=== PATIENT | female | born 1940 | race Caucasian/White ===

== ENCOUNTER → 2025-02-13 23:10 | Emergency (ER) | payer MEDICARE, SELFPAY ==
[2025-02-13 23:11] VITALS: BP 158/75; BMI 28.9
[2025-02-13 23:12] VITALS: BP 158/75
[2025-02-14] VITALS (12 sets, daily range): BP systolic 107–167; BP diastolic 59–96; PULSE 71–73; O2SAT 96
--- NOTE | 2025-02-14 03:25 | ED.GENMED ---
History of Present Illness
<Juan Dennis Jr., PA-C - Last Filed: 02/14/25 23:10>
General
Chief Complaint: Musculo-Skeletal Complaint
Source: patient, ambulance crew and custodial
Exam Limitations: none
Time Seen by Provider: 02/14/25 01:50
Nursing documentation reviewed up to this point in time: agreed with
History of Present Illness
History of Present Illness:
84-year-old female presenting from [facility] with concerns of right leg pain worsening over the past few weeks. Difficulty ambulating tonight. Denies any chest pain shortness of breath numbness weakness changes in overlying
skin or swelling.
Review of Systems
<MARCO Pfeiffer Jr. Last Filed: 02/14/25 23:10>
Review of Systems
Allergies reviewed?: Yes
All Other Systems: ROS reviewed and negative except as documented in HPI and ROS
Phy Exam
<Juan Dennis Jr., PA-C - Last Filed: 02/14/25 23:10>
Physical Exam
Physical Exam:
GENERAL: Alert , in no apparent distress
EYE: pupils equal and reactive
NECK: Supple, no significant adenopathy.
ENT: o/p clr, mmm.
CARDIAC: Regular rate and rhythm .
LUNGS: Clear breath sounds bilaterally, no acute respiratory distress, no wheezes/rales/rhonchi
ABDOMEN: Soft, without focal tenderness, no r/g, no cvat
NEUROLOGICAL: Alert and oriented, no focal neuro deficits
SKIN: Warm and dry, skin intact.
MUSCULOSKELETAL: Trace pitting edema to the right lower extremity distal to the knee no redness or warmth does have some discomfort with movement at the knee however does have general range of motion, well perfused.
PSYCH: Normal and appropriate interaction.
Course
<Juan Dennsi Jr., PA-C - Last Filed: 02/14/25 23:10>
Orders/Labs/Results
Orders:
Orders
02/14/25 02:19
CR Knee- Right 4 Or More View* Urgent
Comment:
Reason For Exam: kne epain
Hip, Right 2-3 Views [CR Hip - RT w/wo Pel 2-3 Vw*] Urgent
Comment:
Reason For Exam: hip pain
Include a pelvis x-ray?: Yes
Venous Doppler Lwr Ext Rt [ Perip Venous LOWER Ext RT] Urgent
Comment:
Reason For Exam: leg pain, bed bound
02/14/25 03:47
Acetaminophen [Tylenol] 1,000 mg PO NOW STA
02/14/25 05:25
CBC/With Diff [Complete Blood Count/With Diff] Urgent
CMP [Comprehensive Metabolic Panel] Urgent
02/14/25 05:37
Pt Eval And Treat Urgent
Activity Level: Ambulate
02/14/25 05:43
Ketorolac [Toradol] 7.5 mg IV NOW STA
02/14/25 05:49
Case Management Consult ONCE
Case Management Consult: Discharge Planning
02/14/25 08:28
Occupational Therapy Consult [Ot Eval And Treat] Urgent
02/14/25 12:09
Walker [Treatment- Walker] ONCE
Abnormal Lab Results
02/14/25
05:25
RBC 4.13 L 10^6/uL
(4.20-5.40)
Hct 36.1 L %
(37.0-47.0)
Lymphocytes % 18.9 L %
(20.5-51.1)
Glucose 201 H mg/dl
(70-99)
02/14/25 05:25
02/14/25 05:25
Vital Signs
Initial and Last Documented VS:
Initial Vital Signs
Temp Pulse Resp BP Pulse Ox
97.9 F 93 18 158/75 94
02/13/25 23:11 02/13/25 23:11 02/13/25 23:11 02/13/25 23:11 02/13/25 23:11
Last Documented Vital Signs
Temp Pulse Resp BP Pulse Ox
97.9 F 79 16 151/81 97
02/13/25 23:11 02/14/25 12:10 02/14/25 12:10 02/14/25 12:10 02/14/25 12:10
<Deb De Souza PA-C - Last Filed: 02/14/25 16:20>
Orders/Labs/Results
Orders:
Orders
02/14/25 02:19
CR Knee- Right 4 Or More View* Urgent
Comment:
Reason For Exam: kne epain
Hip, Right 2-3 Views [CR Hip - RT w/wo Pel 2-3 Vw*] Urgent
Comment:
Reason For Exam: hip pain
Include a pelvis x-ray?: Yes
Venous Doppler Lwr Ext Rt [US Periph Venous LOWER Ext RT] Urgent
Comment:
Reason For Exam: leg pain, bed bound
02/14/25 03:47
Acetaminophen [Tylenol] 1,000 mg PO NOW STA
02/14/25 05:25
CBC/With Diff [Complete Blood Count/With Diff] Urgent
CMP [Comprehensive Metabolic Panel] Urgent
02/14/25 05:37
Pt Eval And Treat Urgent
Activity Level: Ambulate
02/14/25 05:43
Ketorolac [Toradol] 7.5 mg IV NOW STA
02/14/25 05:49
Case Management Consult ONCE
Case Management Consult: Discharge Planning
02/14/25 08:28
Occupational Therapy Consult [Ot Eval And Treat] Urgent
02/14/25 12:09
Walker [Treatment- Walker] ONCE
Abnormal Lab Results
02/14/25
05:25
RBC 4.13 L 10^6/uL
(4.20-5.40)
Hct 36.1 L %
(37.0-47.0)
Lymphocytes % 18.9 L %
(20.5-51.1)
Glucose 201 H mg/dl
(70-99)
02/14/25 05:25
02/14/25 05:25
Vital Signs
Initial and Last Documented VS:
Initial Vital Signs
Temp Pulse Resp BP Pulse Ox
97.9 F 93 18 158/75 94
02/13/25 23:11 02/13/25 23:11 02/13/25 23:11 02/13/25 23:11 02/13/25 23:11
Last Documented Vital Signs
Temp Pulse Resp BP Pulse Ox
97.9 F 79 16 151/81 97
02/13/25 23:11 02/14/25 12:10 02/14/25 12:10 02/14/25 12:10 02/14/25 12:10
<Juan Dennis Jr., MARCO - Last Filed: 02/14/25 23:10>
MDM/Problems Addressed
MDM/Problems Addressed:
84-year-old female presenting to the emergency department today with concerns of right leg pain over the past few weeks slightly worsened tonight difficulty ambulating. Vital signs normal on arrival afebrile no overlying skin pain made worse with
some movements of the right lower extremity. Denies any back pain. Neuro vascularly intact. Ultrasound without acute abnormalities. X-ray without acute abnormalities as well. No redness or warmth. Seems to describe symptoms mainly to the back
of her leg. Try to have her stand up and walk she claims that symptoms were significantly severe into her leg and she was not able to walk. She feels unsafe going home secondary to her ambulatory dysfunction. Concerning this plan to admit. No
evidence of infectious process or emergent bony injury. Labs unremarkable.
<Juan Dennis Jr., PA-C - Last Filed: 02/14/25 23:10>
*Pulse Oximetry
SaO2: 96
Oxygen Mode of Delivery: Room air
<Deb De Souza PA-C - Last Filed: 02/14/25 16:20>
*Pulse Oximetry
Patient hypoxic: no
*Critical Care Note
Total Time (30-74mins, 75-104mins- exclusive of procedures): Not Applicable
<Deb De Souza PA-C - Last Filed: 02/14/25 16:20>
Update Note
Update Note:
Update 12 PM: Received patient in signout pending physical therapy and case management consult. After physical therapy evaluation�recommendation was for at home health. On reassessment�patient states her symptoms seem significantly improved since
arrival to the emergency department. She was able to ambulate with the help of a walker during physical therapy evaluation. Offered admission for ambulatory dysfunction versus discharge home with walker. Patient prefers to go home with walker as
her symptoms have improved. Strict return precautions discussed. Home health was set up with case management. Patient ambulating out of emergency department with walker.
ED Attending Note
<Juan Dennis Jr., PA-C - Last Filed: 02/14/25 23:10>
-
Portions of this chart may have been created with voice recognition software.� Occasional wrong word or��sound alike� substitutions may have occurred due to the inherent limitations of voice recognition software.
Discharge Plan
Departure
Patient Disposition: Home (Routine Discharge)
Date of Disposition: 02/14/25
Time of Disposition: 12:08
Patient with high blood pressure during this ER visit?: Yes
Condition: Good
Covid-19: Not Applicable
Discharge Problem:
Leg pain, right, Ambulatory dysfunction
Prescriptions:
No Action
carvedilol 25 mg Tablet
25 mg PO BID
valsartan 80 mg Tablet
80 mg PO DAILY
spironolactone 25 mg Tablet
25 mg PO DAILY
simvastatin 40 mg Tablet
40 mg PO DAILY
glimepiride 2 mg Tablet
2 mg PO BID
pantoprazole 40 mg Tablet,Delayed Release (Dr/Ec)
40 mg PO DAILY
metformin 500 mg Tablet Extended Release 24 Hr
500 mg PO BID
melatonin 3 mg Tablet
3 mg PO HSPRN PRN (Reason: sleep)
aspirin 81 mg Tablet,Delayed Release (Dr/Ec)
81 mg PO DAILY
cinnamon bark [Cinnamon] 500 mg Capsule
1,000 mg PO DAILY
calcium carbonate-vitamin D3 [Calcium 600 + D(3)] 600 mg-10 mcg (400 unit) Tablet
2 tab PO DAILY
omega 4-ajd-wtf-fish oil [Fish Oil] 1,200 (144-216) mg Capsule
1 cap PO DAILY
multivit with min-folic acid [Diabetic Multivitamin] 120 mcg Tablet,Chewable
1 tab PO DAILY
amoxicillin-pot clavulanate 875-125 mg Tablet
1 tab PO Q12 8 Days Qty: 16 0RF
Referrals:
Michela Hall MD [Family Provider, Internal Medicine] - Follow up in 5-7 days
Activity Restrictions/Additional Instructions:
RETURN TO THE EMERGENCY DEPARTMENT WITH ANY INTRACTABLE PAIN, DIFFICULTY AMBULATING NUMBNESS/TINGLING IN EXTREMITIES, FALLS, WORSENING IN CURRENT SYMPTOMS, OR ANY OTHER CONCERNS
- Home health care was set up today as recommended by PT.
- Please use walker to assist with ambulation. You can take Tylenol as needed for pain.
- Follow-up with primary care for further evaluation/management to ensure that symptoms are not
Monitor your symptoms closely and return to the emergency department with any acute worsening/new symptoms or any other concerns
Interventions
Interventions:
*Risk Screen - Suicide Last Done: 02/13/25 23:15
*General Assessment Last Done: 02/13/25 23:15
*Neglect/Abuse Screening Last Done: 02/13/25 23:15
*ED- Fall Risk Assessment Last Done: 02/13/25 23:15
*ED COVID-19 Vaccine History Last Done: 02/13/25 23:15
*Nursing Disposition Last Done: 02/14/25 12:10
ED-Musculoskeletal Assessment Last Done: 02/13/25 23:52
Discharge Date and Time
Print Language: GERMAN
[2025-02-14] MEDS: TYLENOL 1000 MG PO (04:10)
[2025-02-14 05:41] LABS: Hematocrit 36.1 % (37.0-47.0); Hemoglobin 12.5 g/dL (12.0-16.0); Mean Corp Hgb Conc. 34.6 g/dL (33.0-37.0); Mean Corpuscular Volume 87.4 fL (81.0-99.0); Nucleated Red Blood Cells % 0 %; Platelet Count 144 10^3/uL (130-400); Red Cell Dist. Width 12.4 % (11.5-14.5)
[2025-02-14 05:48] LABS: ALT (SGPT) 22 U/L (0-35); AST (SGOT) 25 U/L (14-36); Albumin 4.2 g/dl (3.5-5.0); Alkaline Phosphatase 48 U/L (38-126); Blood Urea Nitrogen 17 mg/dl (7-17); Calcium 9.3 mg/dl (8.4-10.2); Carbon Dioxide 22 mmol/L (22-30); Chloride 107 mmol/L (98-107); Estimated Creatinine Clearance 67 ml/min; Glucose 201 mg/dl (70-99); Potassium 4.6 mmol/L (3.5-5.1); Sodium 137 mmol/L (135-145); Total Protein 6.6 g/dl (6.3-8.2); eGFR > 60.00
[2025-02-14] MEDS: TORADOL 7.5 MG IV (06:10)
--- NOTE | 2025-02-14 08:41 | CM ---
Addendum entered by Delmy Bui 02/14/25 12:17:
Pt was able to ambulate with rolling walker and feels comfortable returning to her apartment. Discussed HH, pt requested referral sent to [facility]. Referral sent via [facility] and I spoke to Ann and informed her of referral. Ann gave me to
number for [facility] [phone], number given to pt to call and arrange transport home. ED RN updated.
Original Note:
Received consult, reviewed chart and met with pt bedside in ED.
[place] lives alone in [place] apartment at [facility], has never been to SNF.
PT here to see pt, OT consult requested and ordered.
== END | disposition home or self-care (01) ==
LOC: EMR 23:10
PROVIDERS: Physician Assistant; EMERGENCY PHYSICIAN Emergency Medicine; FAMILY PHYSICIAN Internal Medicine Geriatric Medicine
DX: M79.604 Pain in right leg (principal); R26.2 Difficulty in walking, not elsewhere classified
CPT/HCPCS: 99284; 96374; 73502; 73564; 80053; 85025; 93971